=== PATIENT | male | born 1995 | race Caucasian/White ===

== ENCOUNTER 2018-11-17 02:43 | Inpatient (IN) | payer BC ==
[~2018-11-17] VITALS: Ht 188 cm; Wt 94.9 kg
[2018-11-17] MEDS ORDERED: IV NORMAL SALINE 1000ML BAG 1,000 ML IV ONE ×2 (03:00→04:30)
[2018-11-17 03:12] LABS: BASO % 0 % (0-3); EOS # 0.1 x10^3/uL (0.0-0.7); EOS % 1 % (0-3); HEMATOCRIT 46.4 % (39.0-53.0); HEMOGLOBIN 15.5 g/dL (13.0-17.5); LYMPH # 1.8 x10^3/uL (1.0-4.8); LYMPH % 28 % (24-48); MEAN CORPUSCULAR HEMOGLOBIN 31 pg (25-35); MEAN CORPUSCULAR HGB CONC 33 g/dL (31-37); MEAN CORPUSCULAR VOLUME 93 fL (79-100); MONO # 0.5 x10^3/uL (0.0-1.1); MONO % 8 % (0-9); NEUT # 4.1 x10^3uL (1.8-7.7); NEUT % 63 % (31-73); PLATELET COUNT 192 x10^3/uL (140-400); RED CELL DISTRIBUTION WIDTH 12.6 % (11.5-14.5); WHITE BLOOD COUNT 6.5 x10^3/uL (4.0-11.0)
--- NOTE | 2018-11-17 03:26 | PHYS DOC ---
Adult General Chief Complaint Chief Complaint: OVERDOSE HPI HPI Patient is a 23 year old male was brought here by EMS due to nausea, vomiting, altered mental status, suicidal ideation, drug overdose. Patient said he has been under lot of emotional stress lately due to relationship problem. He said he took an unknown amount of lisinopril, clonazepam, trazodone and buspar at midnight to kill himself. Patient woke up at around 2 am, felt really sick, vomited several times so he called EMS to take him to the hospital. Patient denied any chest pain or shortness of air at this time, no abdominal pain. Patient has history of suicidal attempt in the past. Review of Systems Review of Systems Constitutional: Denies fever or chills [] Eyes: Denies change in visual acuity, redness, or eye pain [] HENT: Denies nasal congestion or sore throat [] Respiratory: Denies cough or shortness of breath [] Cardiovascular: No additional information not addressed in HPI [] GI: Denies abdominal pain,POSITIVE FOR nausea, vomiting, NO bloody stools or diarrhea [] : Denies dysuria or hematuria [] Musculoskeletal: Denies back pain or joint pain [] Integument: Denies rash or skin lesions [] Neurologic: Denies headache, focal weakness or sensory changes [] Endocrine: Denies polyuria or polydipsia PSYCH: POSITIVE FOR DEPRESSION, SUICIDAL IDEATION. All other systems were reviewed and found to be within normal limits, except as documented in this note. Current Medications Current Medications Current Medications Medications (Trade) Dose Ordered Sig/Tia Start Time Stop Time Status Last Admin Dose Admin Calcium Gluconate (Calcium Gluconate) 1,000 mg 1X ONCE 11/17/18 04:30 11/17/18 04:31 Insulin Human Regular (HumuLIN R VIAL) 8 unit 1X ONCE 11/17/18 04:30 11/17/18 04:31 Ondansetron HCl (Zofran) 4 mg PRN Q8HRS PRN 11/17/18 04:00 11/18/18 03:59 Potassium Chloride 40 meq/ Dextrose 1,020 ml @ 75 mls/hr 1X ONCE 11/17/18 04:30 11/17/18 18:05 Potassium Chloride (Klor-Con) 40 meq 1X ONCE 11/17/18 04:30 11/17/18 04:31 Sodium Bicarbonate (Sodium Bicarb Adult 8.4% Syr) 50 meq 1X ONCE 11/17/18 04:30 11/17/18 04:31 Sodium Chloride 1,000 ml @ 100 mls/hr Q10H 11/17/18 04:00 11/18/18 03:59 Allergies Allergies Allergies Coded Allergies Type Severity Reaction Last Updated Verified No Known Drug Allergies 11/17/18 No Physical Exam Physical Exam Constitutional: Well developed, well nourished, no acute distress, non-toxic appearance. [] HENT: Normocephalic, atraumatic, bilateral external ears normal, oropharynx moist, no oral exudates, nose normal. [] Eyes: PERRLA, EOMI, conjunctiva normal, no discharge. [] Neck: Normal range of motion, no tenderness, supple, no stridor. [] Cardiovascular:Heart rate regular rhythm, no murmur [] Lungs & Thorax: Bilateral breath sounds clear to auscultation [] Abdomen: Bowel sounds normal, soft, no tenderness, no masses, no pulsatile masses. [] Skin: Warm, dry, no erythema, no rash. [] Back: No tenderness, no CVA tenderness. [] Extremities: No tenderness, no cyanosis, no clubbing, ROM intact, no edema. [] Neurologic: Alert and oriented X 3, normal motor function, normal sensory function, no focal deficits noted. [] Psychologic: PATIENT WITH FLAT AFFECT, ADMITTED OF SUICIDAL IDEATION. Current Patient Data Vital Signs Vital Signs Date Time Temp Pulse Resp B/P (MAP) Pulse Ox O2 Delivery O2 Flow Rate FiO2 11/17/18 02:44 98.1 96 24 148/63 (91) 97 Room Air 98.1 Lab Values Laboratory Tests Test 11/17/18 02:30 11/17/18 02:55 11/17/18 03:03 Sodium Level 141 mmol/L (136-145) Potassium Level 3.0 mmol/L (3.5-5.1) L Chloride Level 106 mmol/L (98-107) Carbon Dioxide Level 18 mmol/L (21-32) L Anion Gap 17 (6-14) H Blood Urea Nitrogen 21 mg/dL (8-26) Creatinine 0.7 mg/dL (0.7-1.3) Estimated GFR (Cockcroft-Gault) 139.8 BUN/Creatinine Ratio 30 (6-20) H Glucose Level 342 mg/dL (70-99) H Calcium Level 6.5 mg/dL (8.5-10.1) L Magnesium Level 1.3 mg/dL (1.8-2.4) L Total Bilirubin 0.4 mg/dL (0.2-1.0) Aspartate Amino Transferase (AST) 11 U/L (15-37) L Alanine Aminotransferase (ALT) 19 U/L (16-63) Alkaline Phosphatase 46 U/L (46-116) Total Protein 4.4 g/dL (6.4-8.2) L Albumin 2.6 g/dL (3.4-5.0) L Albumin/Globulin Ratio 1.4 (1.0-1.7) Lipase 58 U/L (73-393) L White Blood Count 6.5 x10^3/uL (4.0-11.0) Red Blood Count 5.00 x10^6/uL (4.30-5.70) Hemoglobin 15.5 g/dL (13.0-17.5) Hematocrit 46.4 % (39.0-53.0) Mean Corpuscular Volume 93 fL (79-100) Mean Corpuscular Hemoglobin 31 pg (25-35) Mean Corpuscular Hemoglobin Concent 33 g/dL (31-37) Red Cell Distribution Width 12.6 % (11.5-14.5) Platelet Count 192 x10^3/uL (140-400) Neutrophils (%) (Auto) 63 % (31-73) Lymphocytes (%) (Auto) 28 % (24-48) Monocytes (%) (Auto) 8 % (0-9) Eosinophils (%) (Auto) 1 % (0-3) Basophils (%) (Auto) 0 % (0-3) Neutrophils # (Auto) 4.1 x10^3uL (1.8-7.7) Lymphocytes # (Auto) 1.8 x10^3/uL (1.0-4.8) Monocytes # (Auto) 0.5 x10^3/uL (0.0-1.1) Eosinophils # (Auto) 0.1 x10^3/uL (0.0-0.7) Basophils # (Auto) 0.0 x10^3/uL (0.0-0.2) Prothrombin Time 13.2 SEC (11.7-14.0) Prothrombin Time INR 1.0 (0.8-1.1) PTT 22 SEC (24-38) L Salicylates Level < 2.8 mg/dL (2.8-20.0) L Salicylate Last Dose Date Salicylate Last Dose Time Acetaminophen Level < 2 mcg/ml (10-30) L Acetaminophen Last Dose Date Acetaminophen Last Dose Time Ethyl Alcohol Level 38 mg/dL (0-10) H Acetone Level Neg (NEG) O2 Saturation 95 % (92-99) Arterial Blood pH 7.31 (7.35-7.45) L Arterial Blood pCO2 at Patient Temp 40 mmHg (35-46) Arterial Blood pO2 at Patient Temp 86 mmHg (85-108) Arterial Blood HCO3 20 mmol/L (21-28) L Arterial Blood Base Excess -6 mmol/L (-3-3) L FiO2 21 Laboratory Tests 11/17/18 02:55 Laboratory Tests 11/17/18 02:30 EKG EKG EKG WAS READ BY THIS PHYSICIAN AT 0312, RATE OF 80 BPM, SINUS RHYTHM, NO STEMI. Radiology/Procedures Radiology/Procedures [][facility] [address] [place], [place] [id number] IMAGING REPORT Signed PATIENT: SHERIN BOBBY ACCOUNT: [id number] : 1995 LOCATION: ER AGE: 23 SEX: M EXAM STATUS: PRE ER ORD. PHYSICIAN: SULAIMAN FELICIANO DO REASON: aspiration PROCEDURE: CHEST AP ONLY CHEST AP ONLY Clinical History: aspiration Technique: AP view of the chest was obtained at 11/17/2018 3:04 AM. Comparison: None. Findings: The cardiomediastinal silhouette is normal. The pulmonary vasculature is normal. The lungs and pleural margins are clear. Impression: No evidence of an acute cardiopulmonary process. Electronically signed by: Kolby Osuna III, MD (11/17/2018 3:30 AM) [facility] DICTATED and SIGNED BY: KOLBY OSUNA III, MD DATE: 11/17/18 0330 Course & Med Decision Making Course & Med Decision Making Pertinent Labs and Imaging studies reviewed. (See chart for details) Patient intentionally overdosed on several medications with unknown amount. Poison Control was contacted, recommended admission for observation for at least 12 hours on director home. Patient will be 1:1. Dragon Disclaimer Dragon Disclaimer This electronic medical record was generated, in whole or in part, using a voice recognition dictation system. Departure Departure Impression: Primary Impression: Drug overdose Additional Impression: Suicidal ideation Disposition: ADMITTED INPATIENT Admitting Physician: Alex Larry Condition: STABLE Problem Qualifiers SULAIMAN FELICIANO DO Nov 17, 2018 03:26
[2018-11-17 03:27] LABS: PROTHROMBIN TIME PATIENT 13.2 SEC (11.7-14.0)
[2018-11-17 03:29] LABS: CALCIUM 6.5 mg/dL (8.5-10.1); CREATININE 0.7 mg/dL (0.7-1.3); GFR 139.8
--- NOTE | 2018-11-17 03:33 | RAD ---
CHEST AP ONLY Clinical History: aspiration Technique: AP view of the chest was obtained at 11/17/2018 3:04 AM. Comparison: None. Findings: The cardiomediastinal silhouette is normal. The pulmonary vasculature is normal. The lungs and pleural margins are clear. Impression: No evidence of an acute cardiopulmonary process. Electronically signed by: Terrance Bañuelos III, MD (11/17/2018 3:30 AM) [facility]
[2018-11-17 03:35] LABS: ACETAMIN < 2 mcg/ml (10-30); ETHANOL 38 mg/dL (0-10); SALIC < 2.8 mg/dL (2.8-20.0)
[2018-11-17 03:35] LABS: ALBUMIN 2.6 g/dL (3.4-5.0); ALBUMIN/GLOBULIN RATIO 1.4 (1.0-1.7); TOTAL BILIRUBIN 0.4 mg/dL (0.2-1.0); TOTAL PROTEIN 4.4 g/dL (6.4-8.2)
[2018-11-17 03:36] LABS: BASE EXCESS ABG -6 mmol/L (-3-3); HCO3 ABG 20 mmol/L (21-28); PCO2 ABG 40 mmHg (35-46); PO2 ABG 86 mmHg (85-108); SAT O2 ABG 95 % (92-99)
[2018-11-17 03:45] LABS: FIO2 ABG 21
[2018-11-17] MEDS ORDERED: ONDANSETRON PF 4 MG/2 ML VIAL. IV PRN ×2 (04:00→09:45)
[2018-11-17] MEDS: IV NORMAL SALINE 1000ML BAG 1,000 ML IV SCH ×3 (04:00→21:26)
[2018-11-17] MEDS ORDERED: POTASSIUM CHLORIDE 40 MEQ in IV DEXTROSE 5% 1,000 ML IV ONE (04:30)
[2018-11-17] MEDS ORDERED: SODIUM BICARB ADULT 8.4% 50 MEQ/50 ML DISP.SYRIN. IV ONE (04:30)
[2018-11-17] MEDS ORDERED: CALCIUM GLUCONATE 1,000 MG/10 ML VIAL. IVP ONE ×2 (04:30→09:45)
[2018-11-17] MEDS ORDERED: INSULIN REGULAR 100 UNIT/ML 3ML VIAL. IV ONE (04:30)
[2018-11-17] MEDS ORDERED: POTASSIUM CHLORIDE 20 MEQ TABLET.ER. PO ONE ×2 (04:30→09:45)
[2018-11-17] MEDS ORDERED: MAGNESIUM SULFATE 2GM 50 ML IV ONE ×2 (05:00→09:45)
[2018-11-17] MEDS ORDERED: LISI10TA2 PO (05:29)
[2018-11-17] MEDS ORDERED: TRAZ-118 PO (05:29)
[2018-11-17] MEDS ORDERED: INSU100I11 SQ (05:29)
[2018-11-17] MEDS ORDERED: INSU100I13 SQ (05:29)
[2018-11-17] MEDS ORDERED: CLON1TAB11 PO (05:29)
[2018-11-17] MEDS ORDERED: BUSP30TA PO (05:29)
[2018-11-17 06:11] VITALS: BP 110/55
--- NOTE | 2018-11-17 06:14 | NUR ---
Patient admission Pt arrived to the unit at approximately 0520 via gurney from the ED. Pt's friend was at bedside and left afterward. Pt was oriented to room and unit routine. Pt is currently on suicide precaution with 1:1 sitter. Patient information guide packet was explained and given to pt. Pt stated that he is depressed and want to end his life that is why he took medications. Pt was made comfortable in bed. Will continue to monitor pt closely. All of pt's belongings was checked and place in green bag in medication room.
[2018-11-17 07:15] VITALS: BP 100/34
--- NOTE | 2018-11-17 09:43 | EKG ---
[facility] [address] [place] [address] Test Date: 2018-11-17 Test Time: 03:10:23 Pat Name: SHERIN BOBBY Department: Room: 534 1 Gender: M Telemetry Monitor: : 1995 Requested By: SULAIMAN FELICIANO Order Number: [id number] Reading MD: Chris Hurtado MD Measurements Intervals [place] Rate: 80 P: 38 TN: 126 QRS: 62 QRSD: 102 T: 30 QT: 368 QTc: 428 Interpretive Statements SINUS RHYTHM NON-SPECIFIC ST/T CHANGES Electronically Signed On 11-18-2018 14:37:15 CDT by Chris Hurtado MD
[2018-11-17] MEDS ORDERED: ACETAMINOPHEN 500 MG TABLET PO PRN (09:45)
--- NOTE | 2018-11-17 10:37 | PDOC1 ---
History and Physical Date of Admission Date of Admission DATE: 11/17/18 TIME: 10:29 Identification/Chief Complaint Chief Complaint SI Source Source: Caregiver, Chart review, Patient History of Present Illness History of Present Illness 23 white male, hx SI in past, intentionally ingested x amt of lisinopril, buspar , klonipine and trazodone. These are all his home meds,. Asleep now but maintaining airway, SOme emesis on arrival, has not touched food yet, sitter at bedside. SOme sinus tachy but no QT prolongation, Keep tele. THis was an SI attempt. borderline hypotensive (Sbps, 90s to low 100s) CA, mag and K low - some emsis BS high, on dextrose iVF currently with K, also diabetic Past Medical History Psych: Depression Past Surgical History Past Surgical History: No pertinent history Family History Family History: Family History Unknown Social History Smoke: No ALCOHOL: none Drugs: None Current Medications Current Medications Current Medications Sodium Chloride 1,000 ml @ 1,000 mls/hr 1X ONCE IV Last administered on at 03:02; Start 11/17/18 at 03:00; Stop 11/17/18 at 03:59; Status DC Potassium Chloride 40 meq/ Dextrose 1,020 ml @ 75 mls/hr 1X ONCE IV Last administered on 11/17/18at 04:20; Start 11/17/18 at 04:30; Stop 11/17/18 at 18:05 Potassium Chloride (Klor-Con) 40 meq 1X ONCE PO Last administered on at 04:12; Start 11/17/18 at 04:30; Stop 11/17/18 at 04:32; Status DC Sodium Bicarbonate (Sodium Bicarb Adult 8.4% Syr) 50 meq 1X ONCE IV Last administered on 11/17/18at 04:15; Start 11/17/18 at 04:30; Stop 11/17/18 at 04:32 ; Status DC Calcium Gluconate (Calcium Gluconate) 1,000 mg 1X ONCE IVP Last administered on 11/17/18at 04:17; Start 11/17/18 at 04:30; Stop 11/17/18 at 04:32; Status DC Sodium Chloride 1,000 ml @ 1,000 mls/hr 1X ONCE IV Last administered on at 04:19; Start 11/17/18 at 04:30; Stop 11/17/18 at 05:29; Status DC Insulin Human Regular (HumuLIN R VIAL) 8 unit 1X ONCE IV Last administered on 11/17/18at 04:11; Start 11/17/18 at 04:30; Stop 11/17/18 at 04:32; Status DC Ondansetron HCl (Zofran) 4 mg PRN Q8HRS PRN IV NAUSEA/VOMITING 1ST CHOICE Last administered on 11/17/18at 04:13; Start 11/17/18 at 04:00; Stop 11/17/18 at 09:34 ; Status DC Sodium Chloride 1,000 ml @ 100 mls/hr Q10H IV ; Start 11/17/18 at 04:00; Stop 11/18/18 at 03:59 Magnesium Sulfate 50 ml @ 25 mls/hr 1X ONCE IV Last administered on 11/17/18at 04:55; Start 11/17/18 at 05:00; Stop 11/17/18 at 06:59; Status DC Ondansetron HCl (Zofran) 4 mg PRN Q6HRS PRN IV NAUSEA/VOMITING 1ST CHOICE; Start 11/17/18 at 09:45 Magnesium Sulfate 50 ml @ 25 mls/hr 1X ONCE IV ; Start 11/17/18 at 09:45; Stop 11/17/18 at 11:44 Potassium Chloride (Klor-Con) 40 meq 1X ONCE PO ; Start 11/17/18 at 09:45; Stop 11/17/18 at 09:46; Status DC Potassium Chloride (Klor-Con) 40 meq DAILYWBKFT PO ; Start 11/18/18 at 08:00 Calcium Gluconate (Calcium Gluconate) 1,000 mg 1X ONCE IVP ; Start 11/17/18 at 09:45; Stop 11/17/18 at 09:46; Status DC Acetaminophen (Tylenol) 500 mg PRN Q6HRS PRN PO MILD PAIN / TEMP; Start at 09:45 Active Scripts Active Reported Buspirone Hcl 30 Mg Tablet 150 Mg PO DAILY Lisinopril 10 Mg Tablet 1 Tab PO DAILY Lantus Solostar (Insulin Glargine,Hum.rec.anlog) 100 Unit/1 Ml Insuln.pen 58 Unit SQ QHS Humalog (Insulin Lispro) 100 Unit/1 Ml Insuln.pen 0 SQ TIDAC PRN Trazodone Hcl 50 Mg Tablet 1 Tab PO QHS Clonazepam 1 Mg Tablet 1 Tab PO QHS Allergies Allergies: Coded Allergies: No Known Drug Allergies (Unverified , 11/17/18) ROS Review of System asleep Physical Exam General: No acute distress HEENT: Atraumatic, PERRLA, EOMI, Mucous membr. moist/pink Lungs: Clear to auscultation, Normal air movement Heart: RRR, no thrills, no rubs, no gallops, no murmurs, other (sinus tachy) Cardiovascular: S1, S2, Other (sinus tachy) Breasts: Normal, Rt breast nml w/o mass, Lt breast nml w/o mass, Nipples normal Abdomen: Normal bowel sounds, Soft, No tenderness, No hepatosplenomegaly, No masses Male Genitals Exam: normal genitalia, normal prostate Rectal Exam: not examined PELVIC: Nml ext genitalia Extremities: No clubbing, No cyanosis, No edema, Normal pulses, No tenderness/ swelling Skin: No rashes, No breakdown, No significant lesion Neuro: Normal gait, Normal speech, Strength at 5/5 X4 ext, Normal tone, Sensation intact, Cranial nerves 3-12 NL, Reflexes 2+ Psych/Mental Status: Mental status NL, Mood NL Vitals Vitals Vital Signs Date Time Temp Pulse Resp B/P (MAP) Pulse Ox O2 Delivery O2 Flow Rate FiO2 11/17/18 08:00 Room Air 11/17/18 07:15 98.0 89 18 100/34 (56) 97 98.0 Labs Labs Laboratory Tests Test 11/17/18 02:30 11/17/18 02:55 11/17/18 03:03 11/17/18 07:20 Sodium Level 141 mmol/L (136-145) Potassium Level 3.0 mmol/L (3.5-5.1) Chloride Level 106 mmol/L (98-107) Carbon Dioxide Level 18 mmol/L (21-32) Anion Gap 17 (6-14) Blood Urea Nitrogen 21 mg/dL (8-26) Creatinine 0.7 mg/dL (0.7-1.3) Estimated GFR (Cockcroft-Gault) 139.8 BUN/Creatinine Ratio 30 (6-20) Glucose Level 342 mg/dL (70-99) Calcium Level 6.5 mg/dL (8.5-10.1) Magnesium Level 1.3 mg/dL (1.8-2.4) Total Bilirubin 0.4 mg/dL (0.2-1.0) Aspartate Amino Transf (AST/SGOT) 11 U/L (15-37) Alanine Aminotransferase (ALT/SGPT) 19 U/L (16-63) Alkaline Phosphatase 46 U/L (46-116) Total Protein 4.4 g/dL (6.4-8.2) Albumin 2.6 g/dL (3.4-5.0) Albumin/Globulin Ratio 1.4 (1.0-1.7) Lipase 58 U/L (73-393) White Blood Count 6.5 x10^3/uL (4.0-11.0) Red Blood Count 5.00 x10^6/uL (4.30-5.70) Hemoglobin 15.5 g/dL (13.0-17.5) Hematocrit 46.4 % (39.0-53.0) Mean Corpuscular Volume 93 fL (79-100) Mean Corpuscular Hemoglobin 31 pg (25-35) Mean Corpuscular Hemoglobin Concent 33 g/dL (31-37) Red Cell Distribution Width 12.6 % (11.5-14.5) Platelet Count 192 x10^3/uL (140-400) Neutrophils (%) (Auto) 63 % (31-73) Lymphocytes (%) (Auto) 28 % (24-48) Monocytes (%) (Auto) 8 % (0-9) Eosinophils (%) (Auto) 1 % (0-3) Basophils (%) (Auto) 0 % (0-3) Neutrophils # (Auto) 4.1 x10^3uL (1.8-7.7) Lymphocytes # (Auto) 1.8 x10^3/uL (1.0-4.8) Monocytes # (Auto) 0.5 x10^3/uL (0.0-1.1) Eosinophils # (Auto) 0.1 x10^3/uL (0.0-0.7) Basophils # (Auto) 0.0 x10^3/uL (0.0-0.2) Prothrombin Time 13.2 SEC (11.7-14.0) Prothromb Time International Ratio 1.0 (0.8-1.1) Activated Partial Thromboplast Time 22 SEC (24-38) Salicylates Level < 2.8 mg/dL (2.8-20.0) Salicylate Last Dose Date Salicylate Last Dose Time Acetaminophen Level < 2 mcg/ml (10-30) Acetaminophen Last Dose Date Acetaminophen Last Dose Time Ethyl Alcohol Level 38 mg/dL (0-10) Acetone Level Neg (NEG) O2 Saturation 95 % (92-99) Arterial Blood pH 7.31 (7.35-7.45) Arterial Blood pCO2 at Patient Temp 40 mmHg (35-46) Arterial Blood pO2 at Patient Temp 86 mmHg (85-108) Arterial Blood HCO3 20 mmol/L (21-28) Arterial Blood Base Excess -6 mmol/L (-3-3) FiO2 21 Glucose (Fingerstick) 362 mg/dL (70-99) Laboratory Tests Test 11/17/18 02:30 11/17/18 02:55 11/17/18 03:03 11/17/18 07:20 Sodium Level 141 mmol/L (136-145) Potassium Level 3.0 mmol/L (3.5-5.1) Chloride Level 106 mmol/L (98-107) Carbon Dioxide Level 18 mmol/L (21-32) Anion Gap 17 (6-14) Blood Urea Nitrogen 21 mg/dL (8-26) Creatinine 0.7 mg/dL (0.7-1.3) Estimated GFR (Cockcroft-Gault) 139.8 BUN/Creatinine Ratio 30 (6-20) Glucose Level 342 mg/dL (70-99) Calcium Level 6.5 mg/dL (8.5-10.1) Magnesium Level 1.3 mg/dL (1.8-2.4) Total Bilirubin 0.4 mg/dL (0.2-1.0) Aspartate Amino Transf (AST/SGOT) 11 U/L (15-37) Alanine Aminotransferase (ALT/SGPT) 19 U/L (16-63) Alkaline Phosphatase 46 U/L (46-116) Total Protein 4.4 g/dL (6.4-8.2) Albumin 2.6 g/dL (3.4-5.0) Albumin/Globulin Ratio 1.4 (1.0-1.7) Lipase 58 U/L (73-393) White Blood Count 6.5 x10^3/uL (4.0-11.0) Red Blood Count 5.00 x10^6/uL (4.30-5.70) Hemoglobin 15.5 g/dL (13.0-17.5) Hematocrit 46.4 % (39.0-53.0) Mean Corpuscular Volume 93 fL (79-100) Mean Corpuscular Hemoglobin 31 pg (25-35) Mean Corpuscular Hemoglobin Concent 33 g/dL (31-37) Red Cell Distribution Width 12.6 % (11.5-14.5) Platelet Count 192 x10^3/uL (140-400) Neutrophils (%) (Auto) 63 % (31-73) Lymphocytes (%) (Auto) 28 % (24-48) Monocytes (%) (Auto) 8 % (0-9) Eosinophils (%) (Auto) 1 % (0-3) Basophils (%) (Auto) 0 % (0-3) Neutrophils # (Auto) 4.1 x10^3uL (1.8-7.7) Lymphocytes # (Auto) 1.8 x10^3/uL (1.0-4.8) Monocytes # (Auto) 0.5 x10^3/uL (0.0-1.1) Eosinophils # (Auto) 0.1 x10^3/uL (0.0-0.7) Basophils # (Auto) 0.0 x10^3/uL (0.0-0.2) Prothrombin Time 13.2 SEC (11.7-14.0) Prothromb Time International Ratio 1.0 (0.8-1.1) Activated Partial Thromboplast Time 22 SEC (24-38) Salicylates Level < 2.8 mg/dL (2.8-20.0) Salicylate Last Dose Date Salicylate Last Dose Time Acetaminophen Level < 2 mcg/ml (10-30) Acetaminophen Last Dose Date Acetaminophen Last Dose Time Ethyl Alcohol Level 38 mg/dL (0-10) Acetone Level Neg (NEG) O2 Saturation 95 % (92-99) Arterial Blood pH 7.31 (7.35-7.45) Arterial Blood pCO2 at Patient Temp 40 mmHg (35-46) Arterial Blood pO2 at Patient Temp 86 mmHg (85-108) Arterial Blood HCO3 20 mmol/L (21-28) Arterial Blood Base Excess -6 mmol/L (-3-3) FiO2 21 Glucose (Fingerstick) 362 mg/dL (70-99) VTE Prophylaxis Ordered VTE Prophylaxis Devices: Yes VTE Pharmacological Prophylaxi: Yes Assessment/Plan Assessment/Plan SI with intentional OD on BUsapr, lisinopril, Klonopin and trazodone - keep tele , WOF hypotension sec to TRUDY inhibitor, So far QT interval ok , PAT team, NS Borderline hypotension, prn NS bolus if needs SInus tachy, expected DM 2 on insulin - resume home regimen plus SSI, dc Dextrose IVF (BS 300s) Hypokal, hypomagnesemia, Hypocalcemia - Replace more, recheck tmr, add [id number] to tmr's labs Emesis - supportive meds MOd PCM, albumin 2.8 Dw RN /sitter at bedside, see orders for my elyte replacements PHUONG KEARNEY MD Nov 17, 2018 10:37
[2018-11-17] MEDS ORDERED: DEXTROSE 50% 25 GM / 50ML DISP.SYRIN. IV PRN (10:45)
[2018-11-17 11:00] VITALS: BP 123/65
[2018-11-17] MEDS: INSULIN LISPRO 300 UNITS/3 ML INSULN.PEN. SQ SCH ×3 (11:53→17:36)
[2018-11-17] MEDS ORDERED: INSULIN LISPRO 300 UNITS/3 ML INSULN.PEN. SQ ONE (12:00)
--- NOTE | 2018-11-17 13:00 | NUR ---
Patient continues to sleep most of time. Pt's father related that his son has difficulty sleeping at night, and tends to sleep during the day. Related that he has always tended to sleep a lot. Patient started new job in September, but hadn't gone to work since Sunday (working as a airframe and powerplant mechanic). Dad also shared that his friend that was successful with suicide attempt was Dani's girlfriend's (that he had relationship breakup with) previous boyfriend.
--- NOTE | 2018-11-17 13:30 | NUR ---
Have Spoke with Anthony Barry regarding PAT team consult. Mihir will be in to see patient tomorrow morning, and will call patient's father when he will be heading here to see patient. Anthony was given father's phone number to give to Mihir.
--- NOTE | 2018-11-17 15:00 | NUR ---
Pt's Dad returned with his [place], and reviewed patient's home medications (Fernanda had pics of prescription bottles, and Dad had e-mails from Pharmacy). Nurse called pt pharmacy, reviewed all medications, with doses, when they were filled and picked up, and how much of a supply was given. Copy of this information placed on patient's chart.
[2018-11-17 15:45] VITALS: BP 99/32
[2018-11-17] MEDS ORDERED: LISD50CA3 PO (16:51)
[2018-11-17] MEDS ORDERED: GABA300C18 PO (16:51)
[2018-11-17] MEDS ORDERED: LAMO150T2 PO (16:51)
[2018-11-17] MEDS ORDERED: VENL75TA PO (16:51)
[2018-11-17 19:00] VITALS: BP 119/71
[2018-11-17] MEDS: INSULIN GLARGINE 300 UNITS/3 ML INSULN.PEN. SQ SCH (21:30)
[2018-11-17 23:00] VITALS: BP 108/42
[2018-11-18] VITALS (7 sets, daily range): BP systolic 107–141; BP diastolic 54–79
[2018-11-18 06:35] LABS: CALCIUM 8.5 mg/dL (8.5-10.1); MAGNESIUM 1.8 mg/dL (1.8-2.4); POTASSIUM 4.1 mmol/L (3.5-5.1)
[2018-11-18] MEDS: POTASSIUM CHLORIDE 20 MEQ TABLET.ER. PO SCH (07:53)
[2018-11-18] MEDS: INSULIN LISPRO 300 UNITS/3 ML INSULN.PEN. SQ SCH ×6 (07:56→15:59)
--- NOTE | 2018-11-18 08:18 | NUR ---
MATT consulted for PAT team miguel. MATT phoned PAT team and Mihir will come in to see pt today. Will continue to follow.
[2018-11-18] MEDS: NICOTINE 21MG PATCH. TD SCH (09:25)
--- NOTE | 2018-11-18 10:56 | PDOC ---
PROGRESS NOTES Chief Complaint Chief Complaint SI with OD of home medications - Lisinopril, Buspar, Klonipine, Trazodone History of Present Illness History of Present Illness Patient resting comfortably on 1:1. He states he is feeling a little better today, states that he was drinking yesterday which he attributes to his attempted overdose. He lost a close friend almost a year ago, has had money and relationship troubles. He is not interested in inpatient psych, but has utilized [facility] [employer] [facility] before and acknowledges that it did help him. His father was in the room and firmly stated "he doesn't need to go home." Patient asking for nicotine patch. 1:1 nurse reports no behavioral problems, no concerns. Vitals Vitals Vital Signs Date Time Temp Pulse Resp B/P (MAP) Pulse Ox O2 Delivery O2 Flow Rate FiO2 11/18/18 08:00 Room Air 11/18/18 07:00 98.4 85 16 107/54 (71) 97 98.4 Physical Exam General: Alert, Oriented X3, Cooperative, No acute distress Heart: Regular rate, Normal S1, Normal S2, No murmurs Lungs: Clear, Other (good inspiratory effort, symmetric chest expansion) Abdomen: Normal bowel sounds, Soft, No tenderness, No hepatosplenomegaly, No masses Extremities: No clubbing, No cyanosis, No edema, Normal pulses, No tenderness/ swelling Skin: No rashes, No breakdown, No significant lesion Labs LABS Laboratory Tests Test 11/17/18 11:43 11/17/18 13:19 11/17/18 17:11 11/17/18 20:09 Glucose (Fingerstick) 423 mg/dL (70-99) 312 mg/dL (70-99) 194 mg/dL (70-99) 135 mg/dL (70-99) Test 11/18/18 05:40 11/18/18 07:42 Potassium Level 4.1 mmol/L (3.5-5.1) Calcium Level 8.5 mg/dL (8.5-10.1) Magnesium Level 1.8 mg/dL (1.8-2.4) Glucose (Fingerstick) 169 mg/dL (70-99) Review of Systems Review of Systems as per above Assessment and Plan Assessmemt and Plan Assessment: SI with overdose of home medications -Lisinopril, Buspar, Klonipine, Trazodone Borderline hypotension Sinus tachycardia - resolved Diabetes - insulin dependent Hypokalemia - resolved Hypomagnesemia - resolved Hypocalcemia - resolved Moderate malnutrition - albumin 2.8 Tobaccoism Plan: Continue 1:1 monitoring PAT evaluation planned for today - awaiting recommendations Continue telemetry - ECG showed no prolonged QTc Continue to monitor for hypotension - prn bolus of NS Continue home diabetes medications with SSI HgA1c pending Recheck labs in am Nicotine patch 21 mg prn Carb control diet Comment Review of Relevant I have reviewed the following items yumiko (where applicable) has been applied. Labs Laboratory Tests Test 11/17/18 02:30 11/17/18 02:55 11/17/18 03:03 11/17/18 07:20 Sodium Level 141 mmol/L (136-145) Potassium Level 3.0 mmol/L (3.5-5.1) Chloride Level 106 mmol/L (98-107) Carbon Dioxide Level 18 mmol/L (21-32) Anion Gap 17 (6-14) Blood Urea Nitrogen 21 mg/dL (8-26) Creatinine 0.7 mg/dL (0.7-1.3) Estimated GFR (Cockcroft-Gault) 139.8 BUN/Creatinine Ratio 30 (6-20) Glucose Level 342 mg/dL (70-99) Calcium Level 6.5 mg/dL (8.5-10.1) Magnesium Level 1.3 mg/dL (1.8-2.4) Total Bilirubin 0.4 mg/dL (0.2-1.0) Aspartate Amino Transf (AST/SGOT) 11 U/L (15-37) Alanine Aminotransferase (ALT/SGPT) 19 U/L (16-63) Alkaline Phosphatase 46 U/L (46-116) Total Protein 4.4 g/dL (6.4-8.2) Albumin 2.6 g/dL (3.4-5.0) Albumin/Globulin Ratio 1.4 (1.0-1.7) Lipase 58 U/L (73-393) White Blood Count 6.5 x10^3/uL (4.0-11.0) Red Blood Count 5.00 x10^6/uL (4.30-5.70) Hemoglobin 15.5 g/dL (13.0-17.5) Hematocrit 46.4 % (39.0-53.0) Mean Corpuscular Volume 93 fL (79-100) Mean Corpuscular Hemoglobin 31 pg (25-35) Mean Corpuscular Hemoglobin Concent 33 g/dL (31-37) Red Cell Distribution Width 12.6 % (11.5-14.5) Platelet Count 192 x10^3/uL (140-400) Neutrophils (%) (Auto) 63 % (31-73) Lymphocytes (%) (Auto) 28 % (24-48) Monocytes (%) (Auto) 8 % (0-9) Eosinophils (%) (Auto) 1 % (0-3) Basophils (%) (Auto) 0 % (0-3) Neutrophils # (Auto) 4.1 x10^3uL (1.8-7.7) Lymphocytes # (Auto) 1.8 x10^3/uL (1.0-4.8) Monocytes # (Auto) 0.5 x10^3/uL (0.0-1.1) Eosinophils # (Auto) 0.1 x10^3/uL (0.0-0.7) Basophils # (Auto) 0.0 x10^3/uL (0.0-0.2) Prothrombin Time 13.2 SEC (11.7-14.0) Prothromb Time International Ratio 1.0 (0.8-1.1) Activated Partial Thromboplast Time 22 SEC (24-38) Salicylates Level < 2.8 mg/dL (2.8-20.0) Salicylate Last Dose Date Salicylate Last Dose Time Acetaminophen Level < 2 mcg/ml (10-30) Acetaminophen Last Dose Date Acetaminophen Last Dose Time Ethyl Alcohol Level 38 mg/dL (0-10) Acetone Level Neg (NEG) O2 Saturation 95 % (92-99) Arterial Blood pH 7.31 (7.35-7.45) Arterial Blood pCO2 at Patient Temp 40 mmHg (35-46) Arterial Blood pO2 at Patient Temp 86 mmHg (85-108) Arterial Blood HCO3 20 mmol/L (21-28) Arterial Blood Base Excess -6 mmol/L (-3-3) FiO2 21 Glucose (Fingerstick) 362 mg/dL (70-99) Test 11/17/18 11:43 11/17/18 13:19 11/17/18 17:11 11/17/18 20:09 Glucose (Fingerstick) 423 mg/dL (70-99) 312 mg/dL (70-99) 194 mg/dL (70-99) 135 mg/dL (70-99) Test 11/18/18 05:40 11/18/18 07:42 Potassium Level 4.1 mmol/L (3.5-5.1) Calcium Level 8.5 mg/dL (8.5-10.1) Magnesium Level 1.8 mg/dL (1.8-2.4) Glucose (Fingerstick) 169 mg/dL (70-99) Laboratory Tests Test 11/17/18 11:43 11/17/18 13:19 11/17/18 17:11 11/17/18 20:09 Glucose (Fingerstick) 423 mg/dL (70-99) 312 mg/dL (70-99) 194 mg/dL (70-99) 135 mg/dL (70-99) Test 11/18/18 05:40 11/18/18 07:42 Potassium Level 4.1 mmol/L (3.5-5.1) Calcium Level 8.5 mg/dL (8.5-10.1) Magnesium Level 1.8 mg/dL (1.8-2.4) Glucose (Fingerstick) 169 mg/dL (70-99) Medications Current Medications Sodium Chloride 1,000 ml @ 1,000 mls/hr 1X ONCE IV Last administered on at 03:02; Start 11/17/18 at 03:00; Stop 11/17/18 at 03:59; Status DC Potassium Chloride 40 meq/ Dextrose 1,020 ml @ 75 mls/hr 1X ONCE IV Last administered on 11/17/18at 04:20; Start 11/17/18 at 04:30; Stop 11/17/18 at 10:33 ; Status DC Potassium Chloride (Klor-Con) 40 meq 1X ONCE PO Last administered on at 04:12; Start 11/17/18 at 04:30; Stop 11/17/18 at 04:32; Status DC Sodium Bicarbonate (Sodium Bicarb Adult 8.4% Syr) 50 meq 1X ONCE IV Last administered on 11/17/18at 04:15; Start 11/17/18 at 04:30; Stop 11/17/18 at 04:32 ; Status DC Calcium Gluconate (Calcium Gluconate) 1,000 mg 1X ONCE IVP Last administered on 11/17/18at 04:17; Start 11/17/18 at 04:30; Stop 11/17/18 at 04:32; Status DC Sodium Chloride 1,000 ml @ 1,000 mls/hr 1X ONCE IV Last administered on at 04:19; Start 11/17/18 at 04:30; Stop 11/17/18 at 05:29; Status DC Insulin Human Regular (HumuLIN R VIAL) 8 unit 1X ONCE IV Last administered on 11/17/18at 04:11; Start 11/17/18 at 04:30; Stop 11/17/18 at 04:32; Status DC Ondansetron HCl (Zofran) 4 mg PRN Q8HRS PRN IV NAUSEA/VOMITING 1ST CHOICE Last administered on 11/17/18at 04:13; Start 11/17/18 at 04:00; Stop 11/17/18 at 09:34 ; Status DC Sodium Chloride 1,000 ml @ 125 mls/hr Q8H IV Last administered on 11/17/18at 21 :26; Start 11/17/18 at 04:00; Stop 11/18/18 at 03:59; Status DC Magnesium Sulfate 50 ml @ 25 mls/hr 1X ONCE IV Last administered on 11/17/18at 04:55; Start 11/17/18 at 05:00; Stop 11/17/18 at 06:59; Status DC Ondansetron HCl (Zofran) 4 mg PRN Q6HRS PRN IV NAUSEA/VOMITING 1ST CHOICE; Start 11/17/18 at 09:45 Magnesium Sulfate 50 ml @ 25 mls/hr 1X ONCE IV Last administered on 11/17/18at 10:30; Start 11/17/18 at 09:45; Stop 11/17/18 at 11:44; Status DC Potassium Chloride (Klor-Con) 40 meq 1X ONCE PO Last administered on at 11:18; Start 11/17/18 at 09:45; Stop 11/17/18 at 09:46; Status DC Potassium Chloride (Klor-Con) 40 meq DAILYWBKFT PO Last administered on at 07:53; Start 11/18/18 at 08:00 Calcium Gluconate (Calcium Gluconate) 1,000 mg 1X ONCE IVP Last administered on 11/17/18at 10:30; Start 11/17/18 at 09:45; Stop 11/17/18 at 09:46; Status DC Acetaminophen (Tylenol) 500 mg PRN Q6HRS PRN PO MILD PAIN / TEMP; Start at 09:45 Insulin Human Lispro (HumaLOG) 0-9 UNITS TIDWMEALS SQ Last administered on at 07:56; Start 11/17/18 at 12:00 Dextrose (Dextrose 50%-Water Syringe) 12.5 gm PRN Q15MIN PRN IV SEE COMMENTS; Start 11/17/18 at 10:45 Insulin Glargine (Lantus) 58 units QHS SQ Last administered on 11/17/18at 21:30 ; Start 11/17/18 at 21:00 Insulin Human Lispro (HumaLOG) 10 units TIDWMEALS SQ Last administered on at 07:57; Start 11/17/18 at 17:00 Insulin Human Lispro (HumaLOG) 20 units 1X ONCE SQ Last administered on at 12:13; Start 11/17/18 at 12:00; Stop 11/17/18 at 12:08; Status DC Nicotine (Nicoderm Cq 21mg) 1 patch DAILY TD Last administered on 11/18/18at 09: 25; Start 11/18/18 at 10:00 Active Scripts Active Reported Vyvanse (Lisdexamfetamine Dimesylate) 50 Mg Capsule 1 Cap PO DAILY Lamotrigine 150 Mg Tablet 1 Tab PO DAILY Venlafaxine Hcl 75 Mg Tablet 150 Mg PO BID Gabapentin (Gabapentin) 300 Mg Capsule 300 Mg PO TID Lisinopril 10 Mg Tablet 1 Tab PO DAILY Lantus Solostar (Insulin Glargine,Hum.rec.anlog) 100 Unit/1 Ml Insuln.pen 58 Unit SQ QHS Humalog (Insulin Lispro) 100 Unit/1 Ml Insuln.pen 0 SQ TIDAC PRN Trazodone Hcl 50 Mg Tablet 1 Tab PO QHS Clonazepam 1 Mg Tablet 1 Tab PO QHS Vitals/I & O Vital Sign - Last 24 Hours 11/17/18 11/17/18 11/17/18 11/17/18 11:00 15:45 19:00 20:25 Temp 97.5 98.3 98.6 97.5 98.3 98.6 Pulse 65 94 98 Resp 18 18 20 B/P (MAP) 123/65 (84) 99/32 (54) 119/71 (87) Pulse Ox 96 92 97 O2 Delivery Room Air Room Air Room Air 11/17/18 11/18/18 11/18/18 11/18/18 23:00 03:00 07:00 08:00 Temp 98.4 98.2 98.4 98.4 98.2 98.4 Pulse 81 72 85 Resp 18 18 16 B/P (MAP) 108/42 (64) 129/77 (94) 107/54 (71) Pulse Ox 95 97 97 O2 Delivery Room Air Room Air Intake and Output 11/17/18 11/17/18 11/18/18 15:00 23:00 07:00 Intake Total 1980 ml 640 ml 480 ml Output Total 600 ml Balance 1380 ml 640 ml 480 ml ONEAL PEREZ III DO Nov 18, 2018 10:56
--- NOTE | 2018-11-18 12:58 | NUR ---
As recommended by PAT team, MATT phoned and faxed referral to [facility], phone: [phone], fax: [phone]. Pt acceptance and admission pending. Will continue to follow.
--- NOTE | 2018-11-18 15:30 | NUR ---
SW received a phone call from [facility] stating they have accepted pt but will need a Physician note indicating pt is medically stable to admit. Physician notified. Discussed with RN. Will continue to follow.
--- NOTE | 2018-11-18 16:22 | NUR ---
Received a call back from Dr. Baca in regards to patient. Dr. Baca states he recorded in a discharge note that patient is medically stable for discharge from his standpoint. I am currently just waiting on his note to upload from dictation. Will continue to monitor patient.
--- NOTE | 2018-11-18 16:23 | PDOC ---
Provider Note Provider Note This patient was seen and examined this a.m. He is medically stable for dc and transfer to in patient Psychiatry. Oneal Baca. ONEAL PAULSON III, DO Nov 18, 2018 16:23
--- NOTE | 2018-11-18 16:35 | NUR ---
MATT faxed Physician note to [facility] and provided RN phone number to facility. [facility] will call RN if they are able to take pt today. Packet on chart. Discussed with RN.
[2018-11-18] MEDS ORDERED: ONDANSETRON ODT 4 MG TAB.RAPDIS. PO PRN (21:15)
[2018-11-18] MEDS ORDERED: INSULIN LISPRO 300 UNITS/3 ML INSULN.PEN. SQ ONE (21:15)
[2018-11-18] MEDS: INSULIN GLARGINE 300 UNITS/3 ML INSULN.PEN. SQ SCH (21:30)
--- NOTE | 2018-11-18 22:06 | DS ---
DATE OF DISCHARGE: 11/18/2018 ADMISSION DIAGNOSIS: Ingestion. DISCHARGE DIAGNOSIS: Resolving ingestion and probable depression. HOSPITAL COURSE: The patient is a pleasant young 23-year-old healthy male who ingested all of his home meds. He states he had been drinking last night when he took them. We admitted the patient and consulted the psychiatric assessment team. I saw and examined the patient this morning. PHYSICAL EXAMINATION: HEART: His heart tones were normal. LUNGS: Clear. ABDOMEN: Soft. EXTREMITIES: There was no edema. PSYCHIATRIC: He was psychologically intact, but seemed a little bit flat, perhaps a little depressed. He denied any suicidal ideation at this time. SUMMARY: I talked to the patient's dad as well. The patient's dad was quite concerned and wanted him to go to an inpatient unit. Discussed the case with the nurse this afternoon. She states that they probably have a room available at [facility]. We plan to discharge to [facility]. The patient is medically stable for discharge. DISPOSITION: Inpatient Psych at [facility]. ACTIVITY: As tolerated. DIET: Low sodium. MEDICATIONS: Please see the MRAD. TOTAL TIME: 31 minutes. ONEAL PEREZ DO DR: AB/alyssa JOB#: [id number] / [id number]
[2018-11-19 03:00] VITALS: BP 121/74
[2018-11-19 03:14] LABS: HEMOGLOBIN A1C 8.7 % (4.8-5.6)
[2018-11-19 04:22] LABS: BASO # 0.1 x10^3/uL (0.0-0.2); BASO % 1 % (0-3); EOS # 0.3 x10^3/uL (0.0-0.7); EOS % 3 % (0-3); HEMATOCRIT 43.6 % (39.0-53.0); HEMOGLOBIN 14.6 g/dL (13.0-17.5); LYMPH # 2.1 x10^3/uL (1.0-4.8); LYMPH % 24 % (24-48); MEAN CORPUSCULAR HEMOGLOBIN 31 pg (25-35); MEAN CORPUSCULAR HGB CONC 34 g/dL (31-37); MEAN CORPUSCULAR VOLUME 93 fL (79-100); MONO # 0.8 x10^3/uL (0.0-1.1); MONO % 10 % (0-9); NEUT # 5.5 x10^3uL (1.8-7.7); NEUT % 63 % (31-73); PLATELET COUNT 175 x10^3/uL (140-400); RED CELL DISTRIBUTION WIDTH 12.9 % (11.5-14.5); WHITE BLOOD COUNT 8.7 x10^3/uL (4.0-11.0)
[2018-11-19 04:31] LABS: CALCIUM 8.9 mg/dL (8.5-10.1); CREATININE 0.9 mg/dL (0.7-1.3); GFR 104.6; POTASSIUM 4.2 mmol/L (3.5-5.1)
[2018-11-19 07:20] VITALS: BP 129/68
[2018-11-19] MEDS: POTASSIUM CHLORIDE 20 MEQ TABLET.ER. PO SCH (07:46)
[2018-11-19] MEDS: INSULIN LISPRO 300 UNITS/3 ML INSULN.PEN. SQ SCH ×2 (07:48→07:49)
[2018-11-19] MEDS: NICOTINE 21MG PATCH. TD SCH (09:06)
--- NOTE | 2018-11-19 09:26 | NUR ---
SW following pt. Spoke with Lexi at [facility] and they are able to admit pt today. MATT arranged transportation via [facility] at 1000 but received a phone call from pt's parents who stated 'that is absolutely not an option'. Discussed with pt as well the importance of him going with EMS. SW discussed with Physician and Physician requested an EMS transport. Spoke with pt's father, Jonnathan via phone who reported they will not have ambulance take the pt. He reported pt's mother on her way and she will take pt to [facility]. SW discussed that would be against medical advice and pt's father reported his will sign 'whatever paperwork' and take him. At this time pt's parents are refusing EMS transport. Spoke with Lexi at [facility] regarding parents' decision and she reported she will check in with her supervisor force adjustment and notify SW [facility] supervisor if they are still able to take pt. MATT cancelled EMS transport. Discussed with Mihir as well.
--- NOTE | 2018-11-19 09:27 | NUR ---
PATIENTS' MOTHER AND FRIEND AT THE BEDSIDE AT THIS TIME, PATIENT ALERT AND VERBALLY RESPONSIVE, DENIES PAIN/DISCOMFORT AT THIS TIME, WILL MONITOR.
--- NOTE | 2018-11-19 09:40 | NUR ---
DR. PEREZ HERE, SPOKE WITH MOTHER AND FRIEND AT THE BEDSIDE, QUESTIONS AND CONCERNS ANSWERED, DR. PEREZ INFORMED PATIENT AND MOTHER ABOUT REASONING FOR AMBULANCE TRANSPORT, PATIENT AND HIS MOTHER PREFERS TO LEAVE PER PERSONAL TRANSPORTATION, AMA PAPERWORK SIGNED BY THE PATIENT AND PLACED IN THE CHART, ALL PERSONAL BELONGINGS GATHERED BY THE FAMILY AND PLACED IN BAGS FOR DISCHARGE.
--- NOTE | 2018-11-19 10:05 | NUR ---
PATIENT AMBULATES OFF THE UNIT ALONGSIDE THIS [employer]S CONSULTANT, HIS MOTHER AND FRIEND, EMOTIONAL SUPPORT GIVEN WILL CALL REPORT TO [facility].
--- NOTE | 2018-11-19 10:20 | NUR ---
REPORT CALLED TO [facility], QUESTIONS AND CONCERNS ANSWERED, PHONE NUMBER TO THE UNIT PROVIDED FOR ANY FURTHER CONCERNS.
--- NOTE | 2018-11-19 11:19 | PDOC ---
PROGRESS NOTES Chief Complaint Chief Complaint SI with OD of home medications - Lisinopril, Buspar, Klonipine, Trazodone History of Present Illness History of Present Illness Patient resting comfortably on 1:1, mother and friend are in the room with him. He is set for transfer to [facility] inpatient psych. Mother states she flew in from [place] and would like to drive him to [facility]. Discussed the hospital protocol of transfer via EMS to ensure he makes it to [facility] and concerns about him not presenting to [facility] if he goes by POV. Patient is A &Ox4, denies active SI/HI and reports insight into triggers leading to his overdose, stating a break up with his girlfriend, financial problems, monotony of daily routine and excessive alcohol use. No concerns from 1:1 observer. Patient electing to leave AMA to go by POV to [facility]. Vitals Vitals Vital Signs Date Time Temp Pulse Resp B/P (MAP) Pulse Ox O2 Delivery O2 Flow Rate FiO2 11/19/18 08:00 Room Air 11/19/18 07:20 98.5 69 14 129/68 (88) 96 98.5 Physical Exam General: Alert, Oriented X3, Cooperative, No acute distress Heart: Regular rate, Normal S1, Normal S2, No murmurs Lungs: Clear, Other (good inspiratory effort, symmetric chest expansion) Abdomen: Normal bowel sounds, Soft, No tenderness, No hepatosplenomegaly, No masses Extremities: No clubbing, No cyanosis, No edema, Normal pulses, No tenderness/ swelling Skin: No rashes, No breakdown, No significant lesion Labs LABS Laboratory Tests Test 11/18/18 11:58 11/18/18 15:54 11/18/18 20:22 11/18/18 23:14 Glucose (Fingerstick) 119 mg/dL (70-99) 243 mg/dL (70-99) 292 mg/dL (70-99) 364 mg/dL (70-99) Test 11/19/18 04:00 11/19/18 07:44 White Blood Count 8.7 x10^3/uL (4.0-11.0) Red Blood Count 4.70 x10^6/uL (4.30-5.70) Hemoglobin 14.6 g/dL (13.0-17.5) Hematocrit 43.6 % (39.0-53.0) Mean Corpuscular Volume 93 fL (79-100) Mean Corpuscular Hemoglobin 31 pg (25-35) Mean Corpuscular Hemoglobin Concent 34 g/dL (31-37) Red Cell Distribution Width 12.9 % (11.5-14.5) Platelet Count 175 x10^3/uL (140-400) Neutrophils (%) (Auto) 63 % (31-73) Lymphocytes (%) (Auto) 24 % (24-48) Monocytes (%) (Auto) 10 % (0-9) Eosinophils (%) (Auto) 3 % (0-3) Basophils (%) (Auto) 1 % (0-3) Neutrophils # (Auto) 5.5 x10^3uL (1.8-7.7) Lymphocytes # (Auto) 2.1 x10^3/uL (1.0-4.8) Monocytes # (Auto) 0.8 x10^3/uL (0.0-1.1) Eosinophils # (Auto) 0.3 x10^3/uL (0.0-0.7) Basophils # (Auto) 0.1 x10^3/uL (0.0-0.2) Sodium Level 137 mmol/L (136-145) Potassium Level 4.2 mmol/L (3.5-5.1) Chloride Level 100 mmol/L (98-107) Carbon Dioxide Level 29 mmol/L (21-32) Anion Gap 8 (6-14) Blood Urea Nitrogen 9 mg/dL (8-26) Creatinine 0.9 mg/dL (0.7-1.3) Estimated GFR (Cockcroft-Gault) 104.6 Glucose Level 295 mg/dL (70-99) Calcium Level 8.9 mg/dL (8.5-10.1) Glucose (Fingerstick) 270 mg/dL (70-99) Review of Systems Review of Systems as per above Assessment and Plan Assessmemt and Plan Assessment: SI with overdose of home medications -Lisinopril, Buspar, Klonipine, Trazodone Borderline hypotension Sinus tachycardia - resolved Diabetes - insulin dependent Hypokalemia - resolved Hypomagnesemia - resolved Hypocalcemia - resolved Moderate malnutrition - albumin 2.8 Tobaccoism Plan: PAT evaluation recommended inpatient psych at [facility]. Patient was medically stable and with discharge plan to go by EMS at 1000 today. Discussed at length the hospital protocol to be transported by EMS to ensure a safe discharge plan. Mother and patient insist on going POV. Patient leaving AMA Comment Review of Relevant I have reviewed the following items yumiko (where applicable) has been applied. Labs Laboratory Tests Test 11/17/18 11:43 11/17/18 13:19 11/17/18 17:11 11/17/18 20:09 Glucose (Fingerstick) 423 mg/dL (70-99) 312 mg/dL (70-99) 194 mg/dL (70-99) 135 mg/dL (70-99) Test 11/18/18 05:40 11/18/18 05:48 11/18/18 07:42 11/18/18 11:58 Potassium Level 4.1 mmol/L (3.5-5.1) Calcium Level 8.5 mg/dL (8.5-10.1) Magnesium Level 1.8 mg/dL (1.8-2.4) Hemoglobin A1c 8.7 % (4.8-5.6) Glucose (Fingerstick) 169 mg/dL (70-99) 119 mg/dL (70-99) Test 11/18/18 15:54 11/18/18 20:22 11/18/18 23:14 11/19/18 04:00 Glucose (Fingerstick) 243 mg/dL (70-99) 292 mg/dL (70-99) 364 mg/dL (70-99) White Blood Count 8.7 x10^3/uL (4.0-11.0) Red Blood Count 4.70 x10^6/uL (4.30-5.70) Hemoglobin 14.6 g/dL (13.0-17.5) Hematocrit 43.6 % (39.0-53.0) Mean Corpuscular Volume 93 fL (79-100) Mean Corpuscular Hemoglobin 31 pg (25-35) Mean Corpuscular Hemoglobin Concent 34 g/dL (31-37) Red Cell Distribution Width 12.9 % (11.5-14.5) Platelet Count 175 x10^3/uL (140-400) Neutrophils (%) (Auto) 63 % (31-73) Lymphocytes (%) (Auto) 24 % (24-48) Monocytes (%) (Auto) 10 % (0-9) Eosinophils (%) (Auto) 3 % (0-3) Basophils (%) (Auto) 1 % (0-3) Neutrophils # (Auto) 5.5 x10^3uL (1.8-7.7) Lymphocytes # (Auto) 2.1 x10^3/uL (1.0-4.8) Monocytes # (Auto) 0.8 x10^3/uL (0.0-1.1) Eosinophils # (Auto) 0.3 x10^3/uL (0.0-0.7) Basophils # (Auto) 0.1 x10^3/uL (0.0-0.2) Sodium Level 137 mmol/L (136-145) Potassium Level 4.2 mmol/L (3.5-5.1) Chloride Level 100 mmol/L (98-107) Carbon Dioxide Level 29 mmol/L (21-32) Anion Gap 8 (6-14) Blood Urea Nitrogen 9 mg/dL (8-26) Creatinine 0.9 mg/dL (0.7-1.3) Estimated GFR (Cockcroft-Gault) 104.6 Glucose Level 295 mg/dL (70-99) Calcium Level 8.9 mg/dL (8.5-10.1) Test 11/19/18 07:44 Glucose (Fingerstick) 270 mg/dL (70-99) Laboratory Tests Test 11/18/18 11:58 11/18/18 15:54 11/18/18 20:22 11/18/18 23:14 Glucose (Fingerstick) 119 mg/dL (70-99) 243 mg/dL (70-99) 292 mg/dL (70-99) 364 mg/dL (70-99) Test 11/19/18 04:00 11/19/18 07:44 White Blood Count 8.7 x10^3/uL (4.0-11.0) Red Blood Count 4.70 x10^6/uL (4.30-5.70) Hemoglobin 14.6 g/dL (13.0-17.5) Hematocrit 43.6 % (39.0-53.0) Mean Corpuscular Volume 93 fL (79-100) Mean Corpuscular Hemoglobin 31 pg (25-35) Mean Corpuscular Hemoglobin Concent 34 g/dL (31-37) Red Cell Distribution Width 12.9 % (11.5-14.5) Platelet Count 175 x10^3/uL (140-400) Neutrophils (%) (Auto) 63 % (31-73) Lymphocytes (%) (Auto) 24 % (24-48) Monocytes (%) (Auto) 10 % (0-9) Eosinophils (%) (Auto) 3 % (0-3) Basophils (%) (Auto) 1 % (0-3) Neutrophils # (Auto) 5.5 x10^3uL (1.8-7.7) Lymphocytes # (Auto) 2.1 x10^3/uL (1.0-4.8) Monocytes # (Auto) 0.8 x10^3/uL (0.0-1.1) Eosinophils # (Auto) 0.3 x10^3/uL (0.0-0.7) Basophils # (Auto) 0.1 x10^3/uL (0.0-0.2) Sodium Level 137 mmol/L (136-145) Potassium Level 4.2 mmol/L (3.5-5.1) Chloride Level 100 mmol/L (98-107) Carbon Dioxide Level 29 mmol/L (21-32) Anion Gap 8 (6-14) Blood Urea Nitrogen 9 mg/dL (8-26) Creatinine 0.9 mg/dL (0.7-1.3) Estimated GFR (Cockcroft-Gault) 104.6 Glucose Level 295 mg/dL (70-99) Calcium Level 8.9 mg/dL (8.5-10.1) Glucose (Fingerstick) 270 mg/dL (70-99) Medications Current Medications Sodium Chloride 1,000 ml @ 1,000 mls/hr 1X ONCE IV Last administered on at 03:02; Start 11/17/18 at 03:00; Stop 11/17/18 at 03:59; Status DC Potassium Chloride 40 meq/ Dextrose 1,020 ml @ 75 mls/hr 1X ONCE IV Last administered on 11/17/18at 04:20; Start 11/17/18 at 04:30; Stop 11/17/18 at 10:33 ; Status DC Potassium Chloride (Klor-Con) 40 meq 1X ONCE PO Last administered on at 04:12; Start 11/17/18 at 04:30; Stop 11/17/18 at 04:32; Status DC Sodium Bicarbonate (Sodium Bicarb Adult 8.4% Syr) 50 meq 1X ONCE IV Last administered on 11/17/18at 04:15; Start 11/17/18 at 04:30; Stop 11/17/18 at 04:32 ; Status DC Calcium Gluconate (Calcium Gluconate) 1,000 mg 1X ONCE IVP Last administered on 11/17/18at 04:17; Start 11/17/18 at 04:30; Stop 11/17/18 at 04:32; Status DC Sodium Chloride 1,000 ml @ 1,000 mls/hr 1X ONCE IV Last administered on at 04:19; Start 11/17/18 at 04:30; Stop 11/17/18 at 05:29; Status DC Insulin Human Regular (HumuLIN R VIAL) 8 unit 1X ONCE IV Last administered on 11/17/18at 04:11; Start 11/17/18 at 04:30; Stop 11/17/18 at 04:32; Status DC Ondansetron HCl (Zofran) 4 mg PRN Q8HRS PRN IV NAUSEA/VOMITING 1ST CHOICE Last administered on 11/17/18at 04:13; Start 11/17/18 at 04:00; Stop 11/17/18 at 09:34 ; Status DC Sodium Chloride 1,000 ml @ 125 mls/hr Q8H IV Last administered on 11/17/18at 21 :26; Start 11/17/18 at 04:00; Stop 11/18/18 at 03:59; Status DC Magnesium Sulfate 50 ml @ 25 mls/hr 1X ONCE IV Last administered on 11/17/18at 04:55; Start 11/17/18 at 05:00; Stop 11/17/18 at 06:59; Status DC Ondansetron HCl (Zofran) 4 mg PRN Q6HRS PRN IV NAUSEA/VOMITING 1ST CHOICE; Start 11/17/18 at 09:45 Magnesium Sulfate 50 ml @ 25 mls/hr 1X ONCE IV Last administered on 11/17/18at 10:30; Start 11/17/18 at 09:45; Stop 11/17/18 at 11:44; Status DC Potassium Chloride (Klor-Con) 40 meq 1X ONCE PO Last administered on at 11:18; Start 11/17/18 at 09:45; Stop 11/17/18 at 09:46; Status DC Potassium Chloride (Klor-Con) 40 meq DAILYWBKFT PO Last administered on at 07:46; Start 11/18/18 at 08:00 Calcium Gluconate (Calcium Gluconate) 1,000 mg 1X ONCE IVP Last administered on 11/17/18at 10:30; Start 11/17/18 at 09:45; Stop 11/17/18 at 09:46; Status DC Acetaminophen (Tylenol) 500 mg PRN Q6HRS PRN PO MILD PAIN / TEMP Last administered on 11/18/18at 17:16; Start 11/17/18 at 09:45 Insulin Human Lispro (HumaLOG) 0-9 UNITS TIDWMEALS SQ Last administered on at 07:48; Start 11/17/18 at 12:00 Dextrose (Dextrose 50%-Water Syringe) 12.5 gm PRN Q15MIN PRN IV SEE COMMENTS; Start 11/17/18 at 10:45 Insulin Glargine (Lantus) 58 units QHS SQ Last administered on 11/18/18 21:30; Start 11/17/18 at 21:00 Insulin Human Lispro (HumaLOG) 10 units TIDWMEALS SQ Last administered on at 07:49; Start 11/17/18 at 17:00 Insulin Human Lispro (HumaLOG) 20 units 1X ONCE SQ Last administered on at 12:13; Start 11/17/18 at 12:00; Stop 11/17/18 at 12:08; Status DC Nicotine (Nicoderm Cq 21mg) 1 patch DAILY TD Last administered on 11/19/18 09: 06; Start 11/18/18 at 10:00 Insulin Human Lispro (HumaLOG) 12 units 1X ONCE SQ Last administered on 21:28; Start 11/18/18 at 21:15; Stop 11/18/18 at 21:22; Status DC Ondansetron HCl (Zofran Odt) 4 mg PRN Q6HRS PRN PO NAUSEA/VOMITING Last administered on 11/18/18at 21:27; Start 11/18/18 at 21:15 Active Scripts Active Reported Vyvanse (Lisdexamfetamine Dimesylate) 50 Mg Capsule 1 Cap PO DAILY Lamotrigine 150 Mg Tablet 1 Tab PO DAILY Venlafaxine Hcl 75 Mg Tablet 150 Mg PO BID Gabapentin (Gabapentin) 300 Mg Capsule 300 Mg PO TID Lisinopril 10 Mg Tablet 1 Tab PO DAILY Lantus Solostar (Insulin Glargine,Hum.rec.anlog) 100 Unit/1 Ml Insuln.pen 58 Unit SQ QHS Humalog (Insulin Lispro) 100 Unit/1 Ml Insuln.pen 0 SQ TIDAC PRN Trazodone Hcl 50 Mg Tablet 1 Tab PO QHS Clonazepam 1 Mg Tablet 1 Tab PO QHS Vitals/I & O Vital Sign - Last 24 Hours 11/18/18 11/18/18 11/18/18 11/18/18 15:00 19:00 20:03 23:00 Temp 98.5 98.2 98.4 98.5 98.2 98.4 Pulse 67 71 81 Resp 14 16 B/P (MAP) 112/64 (80) 141/78 (99) 127/79 (95) Pulse Ox 100 97 96 O2 Delivery Room Air Room Air Room Air Room Air 11/18/18 11/19/18 11/19/18 11/19/18 23:47 03:00 07:20 08:00 Temp 98.4 98.4 98.5 98.4 98.4 98.5 Pulse 81 72 69 Resp 16 16 14 B/P (MAP) 127/79 (95) 121/74 (90) 129/68 (88) Pulse Ox 96 95 96 O2 Delivery Room Air Room Air Room Air Room Air Intake and Output 11/18/18 11/18/18 11/19/18 14:59 22:59 06:59 Intake Total 980 ml 120 ml 150 ml Balance 980 ml 120 ml 150 ml ONEAL PEREZ K III DO Nov 19, 2018 11:19
== END 2018-11-19 11:30 | disposition left against medical advice (07) | DRG 918 ==
LOC: ER 02:43 → 5 NORTH 05:05
PROVIDERS: ADMIT Family Medicine; ATTEND Family Medicine
DX: T43.592A Poisoning by other antipsychotics and neuroleptics, intentional self-harm, initial encounter (principal); R45.851 Suicidal ideations; E44.0 Moderate protein-calorie malnutrition; I95.2 Hypotension due to drugs; E83.42 Hypomagnesemia; E83.51 Hypocalcemia; T43.212A Poisoning by selective serotonin and norepinephrine reuptake inhibitors, intentional self-harm, initial encounter; F32.9 Major depressive disorder, single episode, unspecified; E87.6 Hypokalemia; R00.0 Tachycardia, unspecified; E11.9 Type 2 diabetes mellitus without complications; F17.200 Nicotine dependence, unspecified, uncomplicated; Y92.89 Other specified places as the place of occurrence of the external cause; Z79.4 Long term (current) use of insulin; Z68.26 Body mass index [BMI] 26.0-26.9, adult
CPT/HCPCS: 36415; 36600; 71045; 80048; 80053; 80329; 82010; 82310; 82805; 82962; 83036; 83690; 83735; 84132; 85025; 85610; 85730; 93005; 96361; 96365; 96375; G0480; J0610; J1815; J2405; J3475; J3480; J7030; Q0162; 99285-25